=== PATIENT | male | born 1940 ===

== ENCOUNTER 2019-01-12 07:15 | Inpatient (IN) | payer OTHER ==
[~2019-01-12] VITALS: Ht 167.6 cm; Wt 72.6 kg
[2019-01-12] MEDS ORDERED: HYDRALAZINE HCL50 MG PO (10:13)
[2019-01-12] MEDS ORDERED: LOSARTAN-HCTZ1 EAC1 PO (10:13)
[2019-01-12] MEDS ORDERED: VERAPAMIL HCL240 M1 PO (10:13)
[2019-01-12] MEDS ORDERED: METFORMIN HCL500 MG PO (10:14)
[2019-01-12] MEDS ORDERED: PROPAFENONE HC150 MG PO (10:14)
[2019-01-20] MEDS ORDERED: ELIQUIS2.5 MG PO (08:55)
[2019-01-20] MEDS ORDERED: DUI500 PO (08:55)
[2019-01-20] MEDS ORDERED: PERCOCET 5-3251 EACH PO (08:55)
== END 2019-01-20 18:26 | DRG 470 ==
LOC: SURH 01-18 05:10 → O/R 01-18 05:10 → RECOVERY 01-18 07:15 → SURH 01-18 10:21 → RECOVERY 01-18 17:00 → SURH 01-20 18:26
PROVIDERS: ADMIT Orthopaedic Surgery
PROC: 0MNN0ZZ Release Right Knee Bursa and Ligament, Open Approach (ICD-10-PCS; 2019-01-18)
PROC: 0SRC0J9 Replacement of Right Knee Joint with Synthetic Substitute, Cemented, Open Approach (ICD-10-PCS; principal; 2019-01-18 17:00)
DX: M17.11 Unilateral primary osteoarthritis, right knee (principal); D62 Acute posthemorrhagic anemia; M22.11 Recurrent subluxation of patella, right knee; I10 Essential (primary) hypertension; E11.9 Type 2 diabetes mellitus without complications; Z79.4 Long term (current) use of insulin

== ENCOUNTER → 2019-10-06 06:00 | Outpatient (CLI) | payer OTHER ==
[~2019-10-06] VITALS: Ht 167.6 cm; Wt 74.8 kg
[~2019-10-06 06:00] MED LIST: DOXAZOSIN MESYLA4 MG PO; DUI500 PO; ELIQUIS2.5 MG PO; HYDRALAZINE HCL50 MG PO; LOSARTAN-HCTZ1 EAC1 PO; METFORMIN HCL500 MG PO; PERCOCET 5-3251 EACH PO; PROPAFENONE HC150 MG PO; PROPAFENONE HC225 M1 PO; VERAPAMIL HCL240 M1 PO; VERELAN180 MG PO; ZESTORETIC 20-1 EAC1 PO
== END | disposition home or self-care (01) ==
LOC: EKG 06:00 → EDSTATUS 10-11 07:30 → SURH 10-11 07:30 → O/R 10-11 07:30
DX: M16.12 Unilateral primary osteoarthritis, left hip (principal); I10 Essential (primary) hypertension

== ENCOUNTER 2019-11-28 10:26 | Inpatient (IN) | payer OTHER ==
[~2019-11-28] VITALS: Ht 170.2 cm; Wt 71.2 kg
== END 2019-12-08 11:52 | disposition designated cancer center or children's hospital (05) | DRG 470 ==
LOC: SURH 12-01 07:00 → O/R 12-06 06:00 → SURH 12-06 06:00
PROVIDERS: ADMIT Orthopaedic Surgery
PROC: 0MNP0ZZ Release Left Knee Bursa and Ligament, Open Approach (ICD-10-PCS; 2019-12-06)
PROC: 0SRD0J9 Replacement of Left Knee Joint with Synthetic Substitute, Cemented, Open Approach (ICD-10-PCS; principal; 2019-12-06 07:00)
DX: M17.12 Unilateral primary osteoarthritis, left knee (principal); I10 Essential (primary) hypertension; E11.9 Type 2 diabetes mellitus without complications; Z79.4 Long term (current) use of insulin